=== PATIENT | female | born 1985 | race Caucasian/White ===

== ENCOUNTER 2021-09-30 00:11 | Day surgery (SDC) | payer BC, SELFPAY ==
[2021-09-22 15:39] VITALS: BMI 22.6
--- NOTE | 2021-09-22 16:14 | PC.NURSE ---
Report to the Outpatient Waiting Room, entrance under the green pavilion located off [facility], at 1000 on 09-30-21. OR Time: 1200. - You and your visitor will be asked a series of questions to screen for COVID 19 for your protection. - Only one visitor is allowed at this time. - The patient visitor is requested to leave or wait in car when not with patient. - A mask is required within the hospital. Patients may have clear liquids (water, carbonated beverages, clear teas, apple juice) until 3 hours prior to surgery with a maximum of 20 ounces. 0900 - No food from midnight until time of surgery - Infants may have breast milk until 4 hours before surgery, infant formula 6 hours prior to surgery. - Children will be allowed to drink immediately following surgery. If applicable, please bring a bottle or sippy cup to assist with drinking. Juice, water, soda, and popsicles are readily available. For infants on formula, please bring formula the day of surgery. Pacifiers are allowed. Take the following medications with a SIP of water the morning of surgery: None (May take meds the night before surgery.) Medications to discontinue per physician: N/A Please no make-up, nail greek, hairspray, perfume, deodorant, or body powder the day of surgery. No jewelry (including any body piercings) or valuables the day of surgery, leave them at home. Please take a shower or bath the night before, or the morning of, surgery with an antibacterial soap. Wear comfortable, loose fitting clothing. Children are encouraged to wear pajamas. - Jewelry must be removed prior to entering the operating room. Rings and piercings that are not removed may be cut off. - The hospital will not accept responsibility for valuables. - Please leave all valuables, including medications, at home the day of surgery. If you are going home after surgery, a licensed funeral limousine driver must drive you home. - NO public transportation without another adult. - We recommend that an adult stay with you for 24 hours following discharge. - We also recommend that you do not drive, make important decision, drink alcoholic beverages, or take any drugs that were not prescribed by your health care provider for at least 24 hours after your discharge time. For Pediatric surgeries, we recommend two adults accompany the child home (only one inside the building at this time). Follow any additional instructions given to you from your surgeon. If you or anyone in your household have experienced Covid symptoms in the past week, please notify your surgeon or the nurse liaison at the phone number below for possible testing. Telephone instructions given to Ai Hopper and asked if any additional questions and then verbalized understanding. Patient advised to call surgeon office or pre surgery nurse liaison [phone] if any additional questions.
[2021-09-30] VITALS (8 sets, daily range): BP systolic 110–127; BP diastolic 72–90; PULSE 70–107; RESP 14–16; TEMP 36.1–37.1; O2SAT 98–100
[2021-09-30 10:38] LABS: Hemoglobin 13.8 g/dL (12.0-15.0); Mean Corpuscular HGB Conc 32.9 g/dl (32-36); Mean Corpuscular Hemoglobin 29.3 pg (26-34); Mean Corpuscular Volume 89.2 fl (80-100); Mean Platelet Volume 9.3 fl (7.4-10.4); Platelet Count Result 184 k/mm3 (150-375); Red Blood Count 4.71 M/mm3 (4.2-5.4); Red Cell Distribution Width 11.9 % (11.5-14.5); White Blood Count 7.8 K/mm3 (4.5-10.0)
[2021-09-30] MEDS: ACETAMINOPHEN 500 MG TABLET 1000 MG PO (10:40)
[2021-09-30] MEDS: GABAPENTIN 300 MG CAPSULE PO (10:40)
[2021-09-30] MEDS: LACTATED RINGERS 1,000 ML 30 ML IV CONT ×2 (10:42→13:00)
--- NOTE | 2021-09-30 11:32 | P.PNAN_ITS ---
Anes - Initial Pre Proc Eval Procedure: Operation Date: 09/30/21 12:00 Proposed Procedures p Diagnostic Laparoscopy, Bilateral Salpingectomy - Carolina Huertas DO Date/Time: 09/30/21 11:32 Surgeon: Carolina Huertas DO Pre Op Diagnosis: desires surgical sterility Patient Data Age: 36 Gender: F Height: 1.68 m Weight: 63.1 kg Last Vital Signs Temp 37.1 C 09/30/21 10:36 Pulse 70 09/30/21 10:36 Resp 14 09/30/21 10:36 BP 114/73 09/30/21 10:36 Pulse Ox 100 09/30/21 10:36 O2 Del Method Room Air 09/30/21 10:36 Allergies Allergy/AdvReac Type Severity Reaction Status Date / Time No Known Allergies Allergy Verified 09/30/21 10:43 Home Medications Medication Instructions Recorded Confirmed Type citalopram 10 mg tablet 10 mg PO HS 09/22/21 09/22/21 History norgestimate-ethinyl estradiol 1 tablet PO HS 09/22/21 09/22/21 History 0.18 mg/0.215mg/0.25mg-35 mcg(28)tablet (Tri-Linyah) Laboratory Tests 09/30/21 10:30 WBC 7.8 K/mm3 K/mm3 (4.5-10.0) RBC 4.71 M/mm3 M/mm3 (4.2-5.4) Hgb 13.8 g/dL g/dL (12.0-15.0) Hct 42.0 % % (37.0-47.0) MCV 89.2 fl fl (80-100) MCH 29.3 pg pg (26-34) MCHC 32.9 g/dl g/dl (32-36) RDW 11.9 % % (11.5-14.5) Plt Count 184 k/mm3 k/mm3 (150-375) MPV 9.3 fl fl (7.4-10.4) Patient hx anesthesia problems: none Family hx anesthesia problems: none Results Review: All pre-operative results and documents have been reviewed as part of the pre- operative evaluation. [facility] Past Medical History Medical History Anxiety Social History Social History Smoking status: Never smoker Second hand tobacco smoke exposure: No Alcohol intake: current Alcohol use details: occasionally/socially Substance use: never Substance use type: does not use Living arrangements: with family Spiritual care concerns: No Anes - Eval Final PreProcedure Day of Procedure 09/30/21 11:32 Patient weight: normal Heart: regular rate and rhythm Lungs: clear to auscultation Airway: Mallampati scale class II Neurological: alert and oriented Last oral intake: >/= 8 hours ASA classification: II Emergent: no Anesthetic plan: proceed Anesthesia type and monitoring: general ETT and standard monitoring Results Review: All pre-operative results and documents have been reviewed as part of the pre- operative evaluation. Informed Consent: The patient's anesthetic plan and its attendant risks and benefits were discussed with the patient/family/POA. Questions were solicited and answers provided to the satisfaction of the patient/family/POA.
--- NOTE | 2021-09-30 11:41 | PM.IMHP ---
H&P: HPI History of Present Illness Date/Time: 09/30/21 11:41 Chief Complaint: I'm here for my tubal removal Narrative: Patient presents with undesired fertility. Review of Systems Review of Systems: All systems reviewed & are unremarkable except as noted in HPI and below PMFSH Past Medical History Medical History Anxiety Social History Social History Smoking status: Never smoker Second hand tobacco smoke exposure: No Alcohol intake: current Alcohol use details: occasionally/socially Substance use: never Substance use type: does not use Living arrangements: with family Spiritual care concerns: No Meds Home Medications and Allergies Home Medications Medication Instructions Recorded Confirmed Type citalopram 10 mg tablet 10 mg PO HS 09/22/21 09/22/21 History norgestimate-ethinyl estradiol 1 tablet PO HS 09/22/21 09/22/21 History 0.18 mg/0.215mg/0.25mg-35 mcg(28)tablet (Tri-Linyah) Allergies Allergy/AdvReac Type Severity Reaction Status Date / Time No Known Allergies Allergy Verified 09/30/21 10:43 Vital Signs Vital Signs - 24 hr 09/30/21 10:36 Temperature 37.1 C Pulse Rate 70 Respiratory Rate 14 Blood Pressure 114/73 Pulse Oximetry 100 Oxygen Delivery Room Air Exam Const: General: comfortable and no acute distress Eyes: General: appearance normal, both eyes and all related structures Resp: Effort & Inspection: normal respiratory effort Auscultation: clear to auscultation bilaterally Cardio: Rate: regular rate Rhythm: regular rhythm GI: GI Palp: Yes Soft to palpation Auscultation: normal bowel sounds Skin: General skin exam: normal color and no rashes or lesions noted Neuro: General: gait normal Speech: normal speech Motor exam (neuro): 5/5 motor strength present throughout H&P: Results Labs Labs: Short CBC 09/30/21 Range/Units 10:30 WBC 7.8 (4.5-10.0) K/mm3 Hgb 13.8 (12.0-15.0) g/dL Hct 42.0 (37.0-47.0) % Plt Count 184 (150-375) k/mm3 Assessment and Plan Assessment and plan (1) Sterilization: Code(s): Z30.2 - Encounter for sterilization Status: Acute
--- NOTE | 2021-09-30 11:42 | WPDHPUPDATE1 ---
History and Physical Update Update Date/Time: 09/30/21 11:42 History and Physical has been reviewed, including an updated exam of the patient. There are NO changes in the patient's condition. Risks, benefits, and alternatives have been discussed and questions answered. Patient agrees to proceed with procedure.
[2021-09-30] MEDS: BUPIVACAINE/EPINEPHRINE 0.25% 50 ML VIAL 10 ML INFILTRATE (12:24)
--- NOTE | 2021-09-30 12:49 | W.PM.PROC2 ---
Procedure Note - Detailed Date of Procedure 09/30/21 Pre-op Diagnosis Undesired fertility Post-op Diagnosis Same (Right ovarian simple cyst) Procedure Performed Diagnostic laparoscopy, bilateral salpingectomy, drainage of right ovarian cyst Surgeon Carolina Huertas DO Welfare Investigator [place] Anesthesia General Indications Undesired fertility Findings Normal appearing vulva and vaginal canal. Large cervix. Internally, the bowels and liver were grossly normal. Pelvic organs were unremarkable except for a large right simple cyst on the ovary. Description of Procedure Patient was taken to the operating room where she was placed under general anesthesia. No preoperative antibiotics were indicated. She was prepped and draped in normal sterile fashion in a dorsal lithotomy position. After a time-out was performed, speculum was placed in the vagina and the cervix was visualized. The anterior lip was grasped with a single-tooth tenaculum and an acorn uterine manipulator was introduced. The speculum was removed, gloves were changed and attention was then turned to the abdomen. The skin below the umbilicus was grasped with 2 penetrating towel clamps and was injected with local. A small incision was made and a Veress needle was introduced. The saline water drop test was performed to confirm intraperitoneal placement. Once this was positive, the CO2 insufflation was started and the abdomen was brought to a filling pressure of 15 mmHg. 5 mm Optiview trocar was placed under direct visualization. patient was then placed in steep Trendelenburg position. Survey of the abdomen revealed no evidence of bowel or vascular injury upon entry. The findings were as noted above. The patient's bladder was notably full and was inhibiting movement of the uterus, therefore I elected to drain it with a red rubber catheter. Once this was performed I changed gloves and returned to the abdomen. Additional trocar sites were identified, injected and incised. Additional 5 mm trocars were introduced under direct visualization. The right tube was then elevated and cauterized and transected off using the LigaSure. The tube was passed off through the records management assistant port. The right simple cyst was drained and the fluid was suctioned out. The left tube was then elevated, cauterized and transected off. It was then passed off through the records management assistant port. All surgical pedicles were reinspected as was the drainage site from the cyst and everything was noted to be hemostatic. The patient was taken out of Trendelenburg position, the CO2 insufflation was allowed to escape and the trocars and instruments were removed. Her abdominal incisions were closed with subcuticular 4-0 Monocryl and covered with Steri-Strips. Patient was taken to the recovery room in stable condition. All instrument and sponge counts were correct at the conclusion of the procedure. Estimated Blood Loss 5 IV Fluids 1,000 Pathology Yes Complications No immediate complications Condition Stable Disposition PACU
[2021-09-30] MEDS: oxyCODONE HCL (*CRX) 5 MG TAB IR PO (14:33)
== END 2021-09-30 15:05 | disposition home or self-care (01) ==
PROVIDERS: Visit Provider Obstetrics & Gynecology Gynecologic Oncology
PROC: (CPT 49320; principal; 2021-09-30 12:00)
DX: Z30.2 Encounter for sterilization (principal); F41.9 Anxiety disorder, unspecified
CPT/HCPCS: 58661; 58662; 36415; 85027; 86850; 86900; 86901; 88302; A9270; J0330; J1100; J2405; J2704; J7030; J7120